=== PATIENT | male | born 1965 | race Asian ===

== ENCOUNTER 2021-05-26 15:19 | Emergency (ER) | payer OTHER ==
[~2021-05-26] VITALS: Ht 175.3 cm; Wt 120.2 kg
[2021-05-26 15:37] VITALS: BP 135/67
[2021-05-26 16:14] LABS: BASOPHILS % (AUTO) 0.8 % (0.0-2.0); EOSINOPHILS # (AUTO) 0.1 K/uL (0-0.4); EOSINOPHILS % (AUTO) 1.3 % (0.0-4.0); HEMATOCRIT 40.4 % (36-52); LYMPHOCYTES # (AUTO) 1.7 K/uL (2.0-11.5); LYMPHOCYTES % (AUTO) 32.7 % (20.5-51.1); MEAN CORPUSCULAR HEMOGLOBIN 25 pg (27-31); MEAN CORPUSCULAR HGB CONC 32 g/dL (33-37); MONOCYTES # (AUTO) 0.8 K/uL (0.8-1.0); MONOCYTES % (AUTO) 15.9 % (1.7-9.3); NEUTROPHILS # (AUTO) 2.6 K/uL (1.8-7.7); NEUTROPHILS % (AUTO) 49.3 % (42.2-75.2); PLATELET COUNT (AUTO) 235 K/uL (140-450); RED BLOOD CELL COUNT(AUTO) 5.25 MIL/uL (4.20-6.10); RED CELL DISTRIBUTION WIDTH 15.8 % (11.6-13.7); WHITE BLOOD COUNT (AUTO) 5.3 K/uL (4.8-10.8)
--- NOTE | 2021-05-26 16:18 | NUR ---
[facility] SWAB COLLECTED AND WALKED TO LAB
[2021-05-26 16:29] LABS: ALBUMIN 3.6 g/dL (3.4-5.0); ANION GAP 11.1 (8-16); CREATININE 1.2 mg/dL (0.6-1.3); POTASSIUM 4.1 mmol/L (3.5-5.1); TOTAL BILIRUBIN 0.2 mg/dL (0.0-1.0)
--- NOTE | 2021-05-26 16:30 | NUR ---
56/M presents to ED with c/o chest pain and nausea. Patient states while at work he began having 5/10 pressure pain in his chest, feelings of nausea and diaphoresis. Patient states upon arrival to ED symptoms have since subsided, denies shortness of breath, fever or chills. Patient states pain was nonradiating, denies dizziness or blurred vision. Denies taking anything prior to arrival.
[2021-05-26] MEDS ORDERED: ASPIRIN 325 MG TAB PO ONE (17:20)
--- NOTE | 2021-05-26 17:30 | NUR ---
Patient states he wishes to leave but will await results of troponin results, Dr. Alarcon made aware.
--- NOTE | 2021-05-26 19:37 | NUR ---
Pt report given to Julien HERNDON. Transfer of care at this time.
--- NOTE | 2021-05-26 19:38 | NUR ---
RECEIVED REPORT FROM SVETLANA HERNDON FOR CONTINUITY OF CARE
--- NOTE | 2021-05-26 20:13 | NUR ---
Patient does not wish to proceed with medical care recommended by [facility]. Patient given information related to possible complications, up to and including , which could occur as a result of leaving hospital at this time. Patient verbalizes understanding of risks involved leaving against medical advice. Patient has signed AMA form. VS STABLE. PT DENIES ANY CHEST PAIN.
[2021-05-26 20:14] VITALS: BP 131/75
== END 2021-05-26 20:13 | disposition left against medical advice (07) ==
LOC: MED 15:19
DX: R07.9 Chest pain, unspecified (principal); R11.0 Nausea; R61 Generalized hyperhidrosis; I10 Essential (primary) hypertension; Z20.822 Contact with and (suspected) exposure to COVID-19
CPT/HCPCS: 36415; 71045; 80053; 83880; 84484; 85025; 93005; 99285